=== PATIENT | female | born 1995 | race Caucasian/White ===

== ENCOUNTER 2017-10-31 12:13 | Emergency (ER) | payer SELFPAY ==
[2017-10-31 12:31] VITALS: BP 119/86
[2017-10-31] MEDS ORDERED: NORCO 5/325 PO ONE (15:23)
[2017-10-31] MEDS ORDERED: MOTRIN PO ONE (15:23)
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
== END 2017-10-31 17:00 | disposition home or self-care (01) ==
LOC: ED 12:13
DX: S13.4XXA Sprain of ligaments of cervical spine, initial encounter (principal); S39.012A Strain of muscle, fascia and tendon of lower back, initial encounter; V49.50XA Passenger injured in collision with unspecified motor vehicles in traffic accident, initial encounter; Y93.89 Activity, other specified; Y92.89 Other specified places as the place of occurrence of the external cause; Y99.8 Other external cause status
CPT/HCPCS: 72070; 72100; 99283